=== PATIENT | male | born 1965 | race Caucasian/White ===

== ENCOUNTER 2017-03-11 05:54 | Outpatient (CLI) | payer OTHER ==
--- NOTE | ~2017-03-11 | HEMODYNAMI ---
PATIENT:NICOL OROURKE MEDICAL RECORD: [id number] : 61 LOCATION:D.CAT ADMISSION DATE: 03/11/17 Generatedon:03/11/20178:51 Patient name: NICOL OROURKE Patient #: [id number] SSN: : 1965 Date of study: 03/11/2017 Page: Of Hemodynamic Procedure Report Patient Data Patient Demographics Procedure consent was obtained First Name: NICOL Gender: Male Last Name: HAVEN : 1965 [facility] Initial: YASMINE Age: 52 year(s) Patient #: [id number] Race: Additional ID: [id number] Contact details Address: [address] [place] [address] State: [place] City: [place] Zip code: [address] Past Medical History Allergies Allergen Reaction Date Comments Reported Other allergy 09/27/2014 SHRIMP (hives, swelling); NO allergy to Iodine. Other allergy 05/05/2016 Shellfish Shellfish 03/11/2017 Admission Admission Data Admission Date: 03/11/2017 Admission Time: 5:54 Procedure Procedure Types Cath Procedure Diagnostic Procedure [facility] w/Coronaries PCI Procedure Coronary Stent Initial PTCA Initial Miscellaneous Procedures Moderate Sedation up to 30 minutes Procedure Description Procedure Date Procedure Date: 03/11/2017 Procedure Start Time: 8:32 Procedure End Time: 8:50 Procedure Staff Name Function Pratik Aparicio MD Performing Physician Tarsha Allison RT Scrub Fabian Ortiz RT Scrub Ruslan Davis RN Nurse Uyen Murray RT Monitor Harish Leonard RN Engraver Steel Plate Procedure Data Cath Procedure Fluoroscopy Diagnostic fluoroscopy Total fluoroscopy Time: 5.6 time: 5.6 min min Diagnostic fluoroscopy Total fluoroscopy dose: 764 dose: 764 mGy mGy Contrast Material Contrast Material Type Amount (ml) Isovue 300 89 Entry Location Entry Primary Successful Side Size Upsize Upsize Entry Closure Succes sful Closure Location (Fr) 1 (Fr) 2 (Fr) Remarks Device Remarks Femoral Right 5 Fr 6 Fr Exoseal artery Short Estimated blood loss: 10 ml Diagnostic catheters Device Type Used For End Catheter Placement Cordis 5Fr Pigtail LV Angiography Catheter (MP) Cordis 5Fr JL 4.0 Left Coronary Catheter (MP) Angiography Cordis 5Fr 3DRC Catheter Right Coronary (MP) Angiography Procedure Complications No complications Procedure Medications Medication Administration Route Dosage 0.9% NaCl I.V. 100 ml/hr Oxygen NC 2 l/min Lidocaine 2% added to field 20 Heparin Flush Bag added to field 2 bags (1000units/500ml NS) Versed I.V. 1 mg Fentanyl I.V. 50 mcg Fentanyl I.V. 50 mcg Versed I.V. 2 mg Heparin Bolus I.V. 4000 units Versed I.V. 1 mg Hemodynamics Rest Heart Rate: 68 (bpm) Snapshots Pre Cath Intra NCS Post Cath Vital Signs Time Heart Resp SPO2 etCO2 MH5rsya NIBP (mmHg) Rhythm Pain Sedation Rate (ipm) (%) (mmHg) (mmHg) Status Level (bpm) 8:10:40 66 20 98 0 0 134/69(99) NSR 0 (11) 10(A) , No pain 8:15:28 68 22 97 0 0 122/67(92) NSR 0 (11) 10(A) , No pain 8:20:13 68 15 98 0 0 120/76(90) NSR 0 (11) 10(A) , No pain 8:24:58 72 16 96 0 0 120/74(92) NSR 0 (11) 10(A) , No pain 8:29:42 87 19 96 0 0 121/84(104) NSR 0 (11) 10(A) , No pain 8:34:27 72 17 97 0 0 120/74(95) NSR 0 (11) 9(A) , No pain 8:39:14 81 15 97 0 0 122/71(99) NSR 0 (11) 9(A) , No pain 8:44:01 83 15 94 0 0 122/71(95) NSR 0 (11) 10(A) , No pain 8:48:48 78 17 96 0 0 119/70(102) NSR 0 (11) 10(A) , No pain Medications Time Medication Route Dose Verified Delivered Reason Notes Effectiveness by by 8:07:53 0.9% NaCl I.V. 100 Rsulan Ruslan Per physician ml/hr Susan Davis RN RN 8:08:12 Oxygen NC 2 Ruslan Ruslan Per physician l/min Susan Davis RN RN 8:08:25 Lidocaine 2% added 20ml Ruslan Ruslan for local to vial Susan Davis anesthetic field RN RN 8:08:46 Heparin Flush added 2 Ruslan Ruslan used for Bag to bags Susan Davis procedure (1000units/500ml field RN RN NS) 8:28:42 Versed I.V. 1 mg Ruslan Ruslan for sedation Susan Davis RN RN 8:29:07 Fentanyl I.V. 50 Ruslan Ruslan for sedation mcg Susan Davis RN RN 8:33:21 Fentanyl I.V. 50 Ruslan Ruslan for sedation mcg Susan Davis RN RN 8:33:36 Versed I.V. 2 mg Ruslan Ruslan for sedation Susan Davis RN RN 8:39:17 Heparin Bolus I.V. 4000 Ruslan Ruslan for units Susan Davis anticoagulation RN RN 8:47:37 Versed I.V. 1 mg Ruslan Ruslan for sedation Susan Davis RN svp research & ebusiness operations Log Time Note 8:00:30 Harish Leonard RN sent for patient. Start room use. 8:00:31 Time tracking: Regular hours 8:00:35 Plan of Care:Hemodynamics will remain stable., Cardiac rhythm will remain stable., Comfort level will be maintained., Respiratory function will remain adequate., Patient/ family verbilizes understanding of procedure., Procedure tolerated without complication., Recovers from procedure without complications.. 8:06:06 Patient received from Pre/Post Procedure Room to CCL 1 Alert and oriented. Tansferred to table in Supine position. 8:06:07 Warm blankets applied, and adi hugger turned on for patient comfort. 8:06:08 Correct patient and procedure confirmed by team. 8:06:09 Signed procedure consent form obtained from patient. 8:06:10 ECG and BP/O2 sat monitors applied to patient. 8:06:11 Full Disclosure recording started 8:07:53 0.9% NaCl 100 ml/hr I.V. was administered by Ruslan Davis RN; Per physician; 8:08:12 Oxygen 2 l/min NC was administered by Ruslan Davis RN; Per physician; 8:08:25 Lidocaine 2% 20ml vial added to field was administered by Ruslan Davis RN; for local anesthetic; 8:08:46 Heparin Flush Bag (1000units/500ml NS) 2 bags added to field was administered by Ruslan Davis RN; used for procedure; 8:09:40 Vital chart was started 8:12:29 Baseline sample Acquired. 8:12:32 Rhythm: sinus rhythm 8:12:43 H&P Date Dictated: 03/10/2017 Within 30 days and on chart., H&P Addendum completed by physician on day of procedure. (MUST COMPLETE FOR ALL OUTPATIENTS). 8:12:44 Pre-procedure instructions explained to patient. 8:12:45 Pre-op teaching completed and patient verbalized understanding. 8:12:47 Family in patients room. 8:12:48 Patient NPO since Midnight. 8:12:58 Patient allergic to Shellfish 8:13:01 Is the patient allergic to Iodine/contrast media? No. 8:13:03 Was the patient premedicated? No 8:13:05 Is patient on blood thinner?Yes 8:13:07 ACC The patient was administered the following blood thiners within the last 24 hours: ACCAspirin, ACCPlavix 8:13:08 Patient diabetic? No. 8:13:16 Previous problem with sedation/anesthesia? No ? 8:13:17 Snore? Yes 8:13:18 Sleep apnea? Yes 8:13:19 Deviated septum? No 8:13:20 Opens mouth fully? Yes 8:13:21 Sticks out tongue? Yes 8:13:26 Airway obstruction? No ? 8:13:59 Dentures? No ? 8:14:02 Pre procedure: right dorsailis pedis pulse 2+ Normal; easily identifiable; not easily obliterated 8:14:04 Patient pain scale 0/10 ?. 8:14:11 IV patent on arrival in left hand with 0.9% NaCl at [facility]. 8:14:19 Lab results completed and on chart. 8:14:21 Right groin area was prepped with chlora-prep and draped in sterile fashion 8:14:22 Alarms reviewed by R. N. 8:14:23 Sharps counted by scrub and verified by R.N. 8:14:27 Use device set Femoral Dx 8:14:28 Acist Syringe opened to sterile field. 8:14:28 Bag Decanter opened to sterile field. 8:14:29 Medline Cath Pack opened to sterile field. 8:14:29 Terumo 5Fr Winfield Sheath opened to sterile field. 8:14:29 St Juwan 260cm J .035 wire opened to sterile field. 8:14:30 Acist Hand Control opened to sterile field. 8:14:31 Acist Manifold opened to sterile field. 8:14:31 Diagnostic Infinity 5Fr Multipack catheter opened to sterile field. 8:14:32 Tegaderm 4 x 4 opened to sterile field. 8:17:41 Physician paged 8:28:09 Final Timeout: patient, procedure, and site verified with staff and physician. All members of the team are in agreement. 8:28:11 Right groin site verified by team. 8:28:14 Physical assessment completed. ASA score P 2 - A patient with mild systemic disease as per Pratik Aparicio MD. 8:28:17 Sedation plan: IV Moderate Sedation Versed, Fentanyl 8:28:42 Versed 1 mg I.V. was administered by Ruslan Davis RN; for sedation; 8:29:07 Fentanyl 50 mcg I.V. was administered by Ruslan Davis RN; for sedation; 8:29:39 Zero performed for pressure channel P1 8:30:21 Zero performed for pressure channel P1 8:30:25 Procedure started. 8:32:06 Local anesthetic to right femoral artery with Lidocaine 2% by Pratik Aparicio MD.INITIAL ACCESS ONLY 8:32:51 A 5 Fr sheath was inserted into the Right Femoral artery 8:32:59 A Cordis 5Fr Pigtail Catheter (MP) was advanced over the wire and used for LV Angiography. 8:33:21 Fentanyl 50 mcg I.V. was administered by Ruslan Davis RN; for sedation; 8:33:30 LV gram done using WALTON 8:33:36 Versed 2 mg I.V. was administered by Ruslan Davis RN; for sedation; 8:33:37 Injector settings: Ml/sec: 10, Volume: 20, 8:33:39 Catheter removed. 8:33:46 A Cordis 5Fr JL 4.0 Catheter (MP) was advanced over the wire and used for Left Coronary Angiography. 8:34:52 Terumo 6Fr Winfield Sheath opened to sterile field. 8:34:52 Cline Whisper J 300cm 0.014 guide wire opened to sterile field. 8:34:53 InEnTec BasixCompak Inflation Kit opened to sterile field. 8:34:57 Catheter removed. 8:35:02 A Cordis 5Fr 3DRC Catheter (MP) was advanced over the wire and used for Right Coronary Angiography. 8:35:35 Catheter removed. 8:35:43 Cordis 6FR XBLAD 3.5 guide catheter opened to sterile field. 8:35:51 Sheath upsized to a 6 Fr Short. 8:38:45 6 Fr XBLAD 3.5 guide catheter was inserted over the wire 8:39:17 Heparin Bolus 4000 units I.V. was administered by Ruslan Davis RN; for anticoagulation; 8:39:31 Whisper wire advanced. 8:40:57 Inflation Number: 1 A Promus Premier OTW 3.5 x 20 stent was prepped and advanced across the Mid LAD. The stent was deployed at 17 CATRINA for 0:05 (min:sec). 8:42:25 Wire redirected to Diag. 8:43:00 Stent catheter was removed intact over wire. 8:45:29 Inflation number: 1 A Euphora 1.5 x 12 balloon was prepped and advanced across the 1st Diag, then inflated to 17 CATRINA for 0:09 (min:sec). 8:45:40 Inflation number: 2 The Euphora 1.5 x 12 balloon was reinflated across the 1st Diag, to 21 CATRINA for 0:06 (min:sec). 8:46:16 Balloon removed over the wire. 8:46:16 Wire removed. 8:46:17 Guide catheter removed. 8:46:24 Sheath removed intact; hemostasis achieved with Exoseal to the Right Femoral artery. 8:46:31 Cordis 6Fr Exoseal opened to sterile field. 8:46:33 Procedure ended.(Physican Out) 8:47:37 Versed 1 mg I.V. was administered by Ruslan Davis RN; for sedation; 8:47:47 Fluoroscopy time 05.60 minutes. 8:47:51 Fluoroscopy dose: 764 mGy 8:47:51 Flurop Dose total: 764 8:47:55 Contrast amount:Isovue 300 89ml. 8:47:57 Sharps counted by scrub and verified by R.N. 8:47:59 Insertion/operative site no bleeding no hematoma. 8:48:02 Post-op/insertion site Right Femoral artery dressed using a 4 x 4 and Tegaderm. 8:48:05 Post right femoral artery:stable, clean and dry 8:48:07 Post Procedure Pulses reassessed and unchanged 8:48:10 Post-procedure physical assessment completed. ASA score P 2 - A patient with mild systemic disease as per Pratik Aparicio MD. 8:48:12 Post procedure rhythm: unchanged. 8:48:18 Estimated blood loss: 10 ml 8:48:20 Post procedure instruction explained to patient.Patient verbalizes understanding. 8:48:20 Patient needs reinforcement of post procedure teaching. 8:48:33 Procedure type changed to Cath procedure, Diagnostic procedure, LHC, LHC w/Coronaries, PCI procedure, Coronary Stent Initial, PTCA Initial, Miscellaneous Procedures, Moderate Sedation up to 30 minutes 8:49:55 Procedure and supply charges have been captured, reviewed, submitted and are correct. 8:50:00 Procedure Complication : No complications 8:50:02 See physician's report for complete and final results. 8:50:30 Vital chart was stopped 8:50:31 Report given to Pre/Post Procedure Room. 8:50:35 Patient transfered to Pre/Post Procedure Room with Stretcher. 8:50:42 Procedure ended. 8:50:42 Full Disclosure recording stopped 8:50:45 End room use (Document Last) Intervention Summary Intervention Notes Time ActionType Lesion and Equipment Action# Pressure Duration Attributes Used 8:40:57 Place stent Mid LAD Promus 1 17 00:05 Premier OTW 3.5 x 20 stent 8:45:29 Inflate 1st Diag Euphora 1 17 00:09 balloon 1.5 x 12 balloon 8:45:40 Reinflate 1st Diag Euphora 2 21 00:06 balloon 1.5 x 12 balloon Device Usage Item Name Manufacture Quantity Catalog Number Hospital Part Current Mini [facility] Lot# / Charge Number Stock Stock Serial# Code Acist Acist 1 [id number] 028312 196282 20 MyDentist Inc Bag Microtek 1 [id number] [id number] 84640 237468 5 ReferMe Inc. Medline Cardinal 1 [id number] 462968 58713 248842 5 Cath Pack Health Terumo 5Fr Terumo 1 [id number] 024764 798977 351225 [address] St Juwan 1 247641 173732 713711 992209 30 260cm J .035 wire Acist Hand Acist 1 62169 155884 352329 871861 5 Baitianshi Medical [employer] Inc Acist Acist 1 09063 018603 273314 686984 5 Cooltech Applications Medical Systems Inc Diagnostic Cardinal 1 [id number] 088296 33195 907206 30 Infinity Health 5Fr Multipack catheter Tegaderm 4 3M 1 1626W 327542 010342 732254 5 x 4 Cordis 5Fr Cardinal 1 [id number] 5 Pigtail Health Catheter (MP) Cordis 5Fr Cardinal 1 [id number] 5 JL 4.0 Health Catheter (MP) Terumo 6Fr Terumo 1 [id number] 562695 113489 713374 40 Winfield Sheath [facility] 1 [id number] 571029 963610 786803 5 Whisper J Vascular 300cm 0.014 guide wire Merit Merit 1 [id number] 314682 283511 789447 15 InvitedHome Medical Inflation Kit Cordis 5Fr Cardinal 1 384858 5 3DRC Health Catheter (MP) Cordis 6FR Cardinal 1 [id number] 818809 769616 878019 10 XBLAD 3.5 Health guide catheter Promus Gambier 1 [id number] 488514 369270 5 [id number] Premier W Scientific 3.5 x 20 stent Euphora 1.5 Medtronic 1 [id number] 400737 596079 851850 5 [id number] x 12 balloon Cordis 6Fr Cardinal 1 EX600 241563 675772 754420 10 DoYouBuzz Health Signature Audit [place] Stage Time Signature Unsigned Intra-Procedure 03/11/2017 Uyen 8:50:57 AM Counts RT(R) Signatures Monitor : Uyen Signature : Counts RT Date : Time : [facility] [address] [facility] [address]
[~2017-03-11 05:54] MED LIST: BAYER CHEWABLE81 MG PO; CO Q-10100 MG PO; KRILL OIL 1,001 EAC1 PO; LISINOPRIL10 MG PO; PLAVIX75 MG PO; PREDNISONE PO; TOPROL XL25 MG PO; ZYLOPRIM300 MG PO
[2017-03-11 07:18] LABS: BASOPHILS 0.2 % (0-2); HEMATOCRIT 42.3 % (42.0-54.0); HEMOGLOBIN 14.9 g/dL (13.5-17.5); IMMATURE GRANULOCYTES 1.4 % (0-5); LYMPHOCYTES 29.8 % (15-50); MCH 32.3 pg (26.0-34.0); MCHC 35.2 g/dL (31.0-37.0); MCV 91.8 fL (80.0-100.0); MEAN PLATELET VOLUME 9.6 fL (7.4-10.4); MONOCYTES 6.9 % (2-11); NEUTROPHILS 60.7 % (40-80); PLATELET COUNT 158 10x3/uL (130-400); RBC 4.61 10x6/uL (4.20-6.10); WBC 10.6 10x3/uL (4.8-10.8)
[2017-03-11 07:21] VITALS: BP 130/76; BMI 35.9
[2017-03-11 07:49] LABS: ANION GAP 14.9 mmol/L (8-16); CALCIUM 9.4 mg/dL (8.5-10.1); CARBON DIOXIDE 26.8 mmol/L (21.0-32.0); CREATININE - SERUM 1.3 mg/dL (0.6-1.3); POTASSIUM - SERUM 3.7 mmol/L (3.5-5.1)
--- NOTE | 2017-03-11 09:12 | NUR ---
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 REPORTS OF ONE STENT TO THE LAD AND BALLON TO THE DIAG. HR 80 CHEST PAIN DENIED. O2 AT 2 LITERS NASAL WITH SAT 98% BP 132/78. INSTRUCTED PATIENT TO KEEP HEAD FLAT ON PILLOW WITH RLE STRAIGHT
--- NOTE | 2017-03-11 09:15 | NUR ---
6 FR EXOSEAL R/GROIN CDI NO BLEEDING NO HEMATOMA NOTED. VSS WITH CHEST PAIN DENIED
--- NOTE | 2017-03-11 09:32 | NUR ---
6 FR EXOSEAL R/GROIN CDI NO BLEEDING NO HEMATOMA NOTED. VSS WITH CHEST PAIN DENIED. DR LEES AT BEDSIDE
--- NOTE | 2017-03-11 09:42 | NUR ---
RESTING QUIETLY WITH NO DISTRESS NOTED VSS. 6 FR EXOSEAL R/GROIN CDI NO BLEEDING NO HEMATOMA NOTED
--- NOTE | 2017-03-11 10:11 | NUR ---
TOLERATING FLUIDS WITH NAUSEA DENIED. VSS WITH NO DISTRESS NOTED. 6 FR EXOSEAL R/GROIN CDI NO BLEEDING NO HEMATOMA NOTED
--- NOTE | 2017-03-11 10:32 | NUR ---
NO DISTRESS NO COMPLAINTS VSS WITH 6 FR EXOSEAL R/GROIN CDI NO BLEEDING NO HEMATOMA NOTED.
--- NOTE | 2017-03-11 11:00 | NUR ---
6 FR EXOSEAL R/GROIN CDI NO BLEEDING NO HEMATOMA NOTED. VSS WITH CHEST PAIN DENIED. PATIENT VERBALIZED NEED TO URINATE URINAL PROVIDED WITH PATIENT UPSET. STATED I HAVE TO STAND UP TO URINATE I INSTRUCTED PATIENT OF ORDERS FOR BED REST UNTIL 1300. PATIENT ANGRY STATED THEN I WANT TO GO HOME NOW. NOTIFIED JANINE WITH ASSIST TO ROOM
--- NOTE | 2017-03-11 11:28 | NUR ---
6 FR EXOSEAL R/GROIN CDI NO BLEEDING NO HEMATOMA NOTED. PATIENT VOIDS 700 CC URINE TO COLLECTION VSS
--- NOTE | 2017-03-11 11:56 | NUR ---
REPOSITIONED TO SITTING WITH HOB UP 30 DEGREES AT PATIENT DEMAND.REFUSING TO OBEY ORDERS WANTS BP OFF AND PULSE OX OFF. EDUCATED PATIENT OF NEED TO MONITOR VITAL SIGNS AND RISK FOR BLEEDING TO GROIN. PATIENT STILL REFUSED HOB RAISED 30 DEGREES R/GROIN CDI NO BLEEDING NO HEMATOMA NOTED.
--- NOTE | 2017-03-11 12:24 | NUR ---
R/GROIN CDI NO BLEEDING NO HEMATOMA NOTED. PIV REMOVED WITH DRESSING APPLIED PATIENT UP TO GET DRESSED FOR DISCHARGE HOME CHEST PAIN DENIED
--- NOTE | 2017-03-11 12:40 | NUR ---
VERBAL AND WRITTEN DISCHARGE GONE OVER WITH PATIENT AND FRIENDS. R/GROIN REMAINS CDI NO BLEEDING NO HEMATOMA NOTED. CHEST PAIN IS DENIED. LEFT VIA WC TO PARKING FOR TRANSPORT HOME NO DISRESS
--- NOTE | 2017-03-11 16:47 | OP ---
PATIENT NAME: NICOL OROURKE MEDICAL RECORD: [id number] :61 LOCATION:D.CAT ADMISSION DATE: SURGEON: YEHUDA LEES MD DATE OF OPERATION: 03/11/2017 PROCEDURES: 1. PTCA stent LAD. 2. PTCA LAD diagonal. 3. Left heart catheterization. 4. Selective coronary angiography. 5. Left ventriculogram. INDICATION: Angina and coronary artery disease. PROCEDURE IN DETAIL: After informed consent was obtained and after a detailed explanation of the risks, benefits as well as alternative therapies, the patient elected to proceed with angiogram and angioplasty. The right femoral area was prepped and draped in normal sterile fashion. The right femoral artery was cannulated via modified Seldinger technique with placement of a 6-Albanian sheath. All catheters exchanged through this sheath. FINDINGS: Left ventriculogram was performed in standard 30-degree WALTON view, reveals good cardiac wall motion throughout all segments. Overall ejection fraction estimated 60%. SELECTIVE CORONARY ANGIOGRAPHY: 1. Left main showed no significant angiographic disease. 2. Left anterior descending has previously placed stent in the mid vessel with up to 70% to 80% in-stent restenosis. This is a Resolute stent placed in 2015. 3. Left circumflex shows moderate irregularities, but no flow-limiting stenosis. Previously placed stent is widely patent. 4. Right coronary has moderate irregularities, but no flow-limiting stenosis. PTCA STENT OF THE LAD: The in-stent restenosis was addressed with a 3.5 x 20 mm Promus stent taken to 17 atmospheres. The diagonal have a plaque shift opposing impingement and the diagonal, this was ballooned with a 1.5 balloon. Result was 0% residual throughout. OVERALL IMPRESSION: Successful percutaneous transluminal coronary angioplasty stent of the left anterior descending going from 70% to 80% in-stent restenosis to 0% residual stenosis. 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
== END 2017-03-11 12:42 | disposition home or self-care (01) ==
LOC: D.CATH 05:54
PROVIDERS: Internal Medicine Interventional Cardiology
DX: I25.119 Atherosclerotic heart disease of native coronary artery with unspecified angina pectoris (principal); I10 Essential (primary) hypertension; Z01.812 Encounter for preprocedural laboratory examination

== ENCOUNTER 2017-08-17 07:24 | Outpatient (CLI) | payer OTHER ==
[~2017-08-17] VITALS: Ht 177.8 cm; Wt 107.7 kg
--- NOTE | ~2017-08-17 | OP ---
PATIENT NAME: NICOL OROURKE MEDICAL RECORD: [id number] :61 LOCATION:D.CAT ADMISSION DATE: SURGEON: YEHUDA LEES MD DATE OF OPERATION: 08/17/2017 PROCEDURES: 1. PTCA stent RCA. 2. Intravascular ultrasound. 3. Left heart catheterization. 4. Selective coronary angiography. 5. Left ventriculogram. INDICATION: Angina and coronary artery disease. PROCEDURE IN DETAIL: After informed consent was obtained and after detailed explanation of risks, benefits as well as alternative therapies, the patient elected to proceed with angiogram and angioplasty. The right femoral area is prepped and draped in normal sterile fashion. The right femoral artery was cannulated via modified Seldinger technique with placement of 6-Setswana sheath. All catheters exchanged through this sheath. FINDINGS: The left ventriculogram was performed in standard 30-degree WALTON view and reveals good cardiac wall motion throughout all segments. Overall ejection fraction is estimated at 60%. SELECTIVE CORONARY ANGIOGRAPHY: 1. Left main showed no significant angiographic disease. 2. Left anterior descending has previously placed stent that is widely patent with no significant restenosis. No disease elsewhere throughout the LAD or its branches. 3. The left circumflex has moderate irregularities, but no flow-limiting stenosis. 4. Right coronary artery has an area of 70% stenosis confirmed by intravascular ultrasound in the mid vessel. PTCA STENT OF THE RIGHT CORONARY: The stent used was 3.5 x 15 mm Daniele. Result was 0% residual stenosis. OVERALL IMPRESSION: Successful PTCA stent of the RCA going from 70% initial stenosis confirmed by intravascular ultrasound to 0% residual stenosis. 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
--- NOTE | ~2017-08-17 | HEMODYNAMI ---
PATIENT:NICOL OROURKE MEDICAL RECORD: [id number] : 61 LOCATION:[facility] ADMISSION DATE: 08/17/17 Generatedon:08/17/201710:05 Patient name: NICOL OROURKE Patient #: [id number] SSN: : 1965 Date of study: 08/17/2017 Page: Of Hemodynamic Procedure Report Patient Data Patient Demographics Procedure consent was obtained First Name: NICOL Gender: Male Last Name: HAVEN : 1965 [facility] Initial: YASMINE Age: 52 year(s) Patient #: [id number] Race: Additional ID: [id number] Contact details [address]: [address] [place] [address] State: [place] City: [place] Zip code: [address] Past Medical History Allergies Allergen Reaction Date Comments Reported Other allergy 09/27/2014 SHRIMP (hives, swelling); NO allergy to Iodine. Other allergy 05/05/2016 Shellfish Shellfish 03/11/2017 Admission Admission Data Admission Date: 08/17/2017 Admission Time: 7:24 Procedure Procedure Types Cath Procedure Diagnostic Procedure LHC [facility] w/Coronaries FFR/IVUS Intra-Coronary IVUS Initial Sedation Charges Moderate Sedation up to 15 minutes PCI Procedure Coronary Stent Coronary Stent Initial Procedure Description Procedure Date Procedure Date: 08/17/2017 Procedure Start Time: 9:46 Procedure End Time: 10:05 Procedure Staff Name Function Pratik Aparicio MD Performing Physician Fabian Ortiz RT Monitor Harish Leonard RN Nurse Jimi Davis RT Scrub Procedure Data Cath Procedure Fluoroscopy Diagnostic fluoroscopy Total fluoroscopy Time: 3.8 time: 3.8 min min Diagnostic fluoroscopy Total fluoroscopy dose: 391 dose: 391 mGy mGy Contrast Material Contrast Material Type Amount (ml) Isovue 300 96 Entry Location Entry Primary Successful Side Size Upsize Upsize Entry Closure Succes sful Closure Location (Fr) 1 (Fr) 2 (Fr) Remarks Device Remarks Femoral Right 5 Fr 6 Fr Exoseal artery Short Estimated blood loss: 10 ml Diagnostic catheters Device Type Used For End Catheter Placement MULTIPACK Pigtail 5 Fr Procedure catheter MULTIPACK JL 4.0 5Fr Procedure catheter MULTIPACK 3DRC 5Fr Procedure catheter Procedure Complications No complications Procedure Medications Medication Administration Route Dosage Oxygen NC 2 l/min Heparin Flush Bag added to field 2 bags (1000units/500ml NS) 0.9% NaCl I.V. 100 ml/hr Fentanyl I.V. 50 mcg Versed I.V. 1 mg Fentanyl I.V. 50 mcg Versed I.V. 1 mg Fentanyl I.V. 50 mcg Fentanyl I.V. 50 mcg Heparin Bolus I.V. 4000 units Hemodynamics Rest Heart Rate: 85 (bpm) Pressure Samples Time Site Value (mmHg) Purpose Heart Use Rate(bpm) 9:47 LV 113/12,17 Snapshot 76 9:48 AO 98/67(81) Snapshot 82 9:50 AO 104/75(88) Snapshot 89 Snapshots Pre Cath Intra NCS Post Cath Vital Signs Time Heart Resp SPO2 etCO2 NIBP (mmHg) Rhythm Pain Sedation Rate (ipm) (%) (mmHg) Status Level (bpm) 9:29:22 81 16 98 0 130/74(95) NSR 0 (11) 10(A) , No pain 9:33:44 84 17 96 0 126/78(102) NSR 0 (11) 10(A) , No pain 9:38:02 84 18 94 0 125/83(101) NSR 0 (11) 10(A) , No pain 9:42:18 75 16 96 19.6 121/75(89) NSR 0 (11) 10(A) , No pain 9:46:36 84 16 97 40 133/74(98) NSR 0 (11) 10(A) , No pain 9:50:56 87 15 96 39.2 129/81(93) NSR 0 (11) 10(A) , No pain 9:55:14 89 15 98 27.9 124/75(94) NSR 0 (11) 10(A) , No pain 9:59:32 86 24 91 23.4 125/79(89) NSR 0 (11) 10(A) , No pain 10:03:46 86 16 96 36.9 128/75(96) NSR 0 (11) 10(A) , No pain Medications Time Medication Route Dose Verified Delivered Reason Notes Effectiveness by by 9:40:18 Oxygen NC 2 Pratik Moreira Per physician l/min Markus Leonard RN 9:40:28 Heparin Flush added 2 Pratik Moreira used for Bag to bags Markus Leonard RN procedure (1000units/500ml field NS) 9:40:37 0.9% NaCl I.V. 100 Pratik Moreira Per physician ml/hr Markus Leonard RN 9:40:44 Fentanyl I.V. 50 Pratik Montalvoy for sedation mcg Markus Leonard RN 9:40:51 Versed I.V. 1 mg Pratik Montalvoy for sedation Markus Leonard RN 9:46:37 Fentanyl I.V. 50 Pratik Harish for sedation mcg Markus Leonard RN 9:46:42 Versed I.V. 1 mg Pratik Harish for sedation Markus Leonard RN 9:50:16 Fentanyl I.V. 50 Pratik Harish for sedation mcg Markus Leonard RN 9:55:43 Heparin Bolus I.V. 4000 Pratik Moreira for units Markus Leonard RN anticoagulation 9:59:17 Fentanyl I.V. 50 Pratik Harish for sedation mcg Markus Leonard RN Procedure Log Time Note 9:00:49 Harish Leonard RN sent for patient. Start room use. 9:14:50 Time tracking: Regular hours 9:14:53 Plan of Care:Hemodynamics will remain stable., Cardiac rhythm will remain stable., Comfort level will be maintained., Respiratory function will remain adequate., Patient/ family verbilizes understanding of procedure., Procedure tolerated without complication., Recovers from procedure without complications.. 9:22:23 Patient received from Pre/Post Procedure Room to CCL 3 Alert and oriented. Tansferred to table in Supine position. 9:22:24 Warm blankets applied, and adi hugger turned on for patient comfort. 9:22:24 Correct patient and procedure confirmed by team. 9:22:25 Signed procedure consent form obtained from patient. 9:22:26 ECG and BP/O2 sat monitors applied to patient. 9:22:37 H&P Date Dictated: 08/11/2017 Within 30 days and on chart., H&P Addendum completed by physician on day of procedure. (MUST COMPLETE FOR ALL OUTPATIENTS). 9:22:39 Pre-procedure instructions explained to patient. 9:22:39 Pre-op teaching completed and patient verbalized understanding. 9::40 Family in waiting room. 9::41 Patient NPO since Midnight. 9:28:10 Vital chart was started 9:28:11 Baseline sample Acquired. 9:39:02 Rhythm: sinus rhythm 9:39:03 Full Disclosure recording started 9:39:07 Is the patient allergic to Iodine/contrast media? Yes. 9:39:09 Was the patient premedicated? Yes 9:39:10 Is patient on blood thinner?Yes 9:39:12 ACC The patient was administered the following blood thiners within the last 24 hours: ACCPlavix 9:39:13 Patient diabetic? No. 9:39:15 Previous problem with sedation/anesthesia? No ? 9:39:16 Snore? Yes 9:39:17 Sleep apnea? Yes 9:39:18 Deviated septum? No 9:39:18 Opens mouth fully? Yes 9:39:19 Sticks out tongue? Yes 9:39:21 Airway obstruction? No ? 9:39:23 Dentures? No ? 9:39:25 Pre procedure: right dorsailis pedis pulse 1+ Palpable, but thready & weak; easily obliterated 9:39:27 Patient pain scale 0/10 ?. 9:39:31 IV patent on arrival in left forearm with 0.9% NaCl at KVO. 9:39:33 Lab results completed and on chart. 9:39:36 Right groin area was prepped with chlora-prep and draped in sterile fashion 9:39:37 Alarms reviewed by R. N. 9:39:37 Sharps counted by scrub and verified by R.N. 9:39:38 --------ALL STOP TIME OUT------ 9:39:38 Final Timeout: patient, procedure, and site verified with staff and physician. All members of the team are in agreement. 9:39:42 Right groin site verified by team. 9:39:44 Physical assessment completed. ASA score P 2 - A patient with mild systemic disease as per Pratik Aparicio MD. 9:39:47 Sedation plan: IV Moderate Sedation Medication:Versed, Fentanyl 9:39:52 Zero performed for pressure channel P1 9:40:18 Oxygen 2 l/min NC was administered by Harish Leonard RN; Per physician; 9:40:28 Heparin Flush Bag (1000units/500ml NS) 2 bags added to field was administered by Harish Leonard RN; used for procedure; 9:40:37 0.9% NaCl 100 ml/hr I.V. was administered by Harish Leonard RN; Per physician; 9:40:44 Fentanyl 50 mcg I.V. was administered by Harish Leonard RN; for sedation; 9:40:51 Versed 1 mg I.V. was administered by Harish Leonard RN; for sedation; 9:46:24 Procedure started. 9:46:30 Local anesthetic to right femoral artery with Lidocaine 2% by Pratik Aparicio MD.INITIAL ACCESS ONLY 9:46:37 Fentanyl 50 mcg I.V. was administered by Harish Leonard RN; for sedation; 9:46:42 Versed 1 mg I.V. was administered by Harish Leonard RN; for sedation; 9:46:43 Use device set Femoral Dx 9:46:45 Tegaderm 4 x 4 (1626W) opened to sterile field. 9:46:46 ACIST Manifold (06707) opened to sterile field. 9:46:46 ACIST Hand Control (43432) opened to sterile field. 9:46:48 ACIST Syringe (54086) opened to sterile field. 9:46:48 Bag Decanter (2002) opened to sterile field. 9:46:49 Medline Cath Pack ([id number]) opened to sterile field. 9:46:49 SHEATH 5FR [place] (XMP613) opened to sterile field. 9:46:50 DIAGNOSTIC WIRE .035 260cm J wire (206192) opened to sterile field. 9:46:51 DIAGNOSTIC Multipack 5Fr catheter set (XZ6451) opened to sterile field. 9:46:52 PERCUTANEOUS ENTRY 19GA needle opened to sterile field. 9:47:00 A 5 Fr sheath was inserted into the Right Femoral artery 9:47:16 A MULTIPACK Pigtail 5 Fr catheter was advanced over the wire and used for Procedure. 9:47:42 LV angiography performed. 9:47:43 LV gram done using WALTON 9:47:49 EF : 60 % 9:47:51 LV hemodynamics recorded. 9:47:54 Injector settings: Ml/sec: 7, Volume: 15, 9:47:56 Catheter removed. 9:48:03 A MULTIPACK JL 4.0 5Fr catheter was advanced over the wire and used for Procedure. 9:48:40 LCA angiography performed. 9:49:27 Catheter removed. 9:49:36 A MULTIPACK 3DRC 5Fr catheter was advanced over the wire and used for Procedure. 9:50:16 Fentanyl 50 mcg I.V. was administered by Harish Leonard RN; for sedation; 9:50:26 RCA angiography performed. 9:51:12 Catheter removed. 9:51:44 [place] IVUS Catheter (39195L) opened to sterile field. 9:51:44 INFLATOR Merit BasixCompak (MR1267) opened to sterile field. 9:51:45 GUIDE 6FR AR 1.0 catheter ([id number]) opened to sterile field. 9:51:45 SHEATH 6FR [place] (AJB462) opened to sterile field. 9:52:01 CHOICE PT Extra Support 182cm wire ([id number]) opened to sterile field. 9:52:16 Sheath upsized to a 6 Fr Short. 9:53:40 6 Fr AR 1 guide catheter was inserted over the wire 9:53:50 Choice PT XS wire advanced. 9:53:59 Wire advanced across lesion. 9:54:10 IVUS catheter advanced over wire. 9:55:43 Heparin Bolus 4000 units I.V. was administered by Harish Leonard RN; for anticoagulation; 9:56:27 IVUS pass to RCA lesion performed. 9:56:29 IVUS catheter removed over wire. 9:59:17 Fentanyl 50 mcg I.V. was administered by Harish Leonard RN; for sedation; 10:00:07 Inflation Number: 1 A PAULINE RX 3.5 x 15 stent ([id number]) was prepped and advanced across the Mid RCA. The stent was deployed at 17 CATRINA for 0:10 (min:sec). 10:00:55 Stent catheter was removed intact over wire. 10:00:56 Wire removed. 10:00:57 Guide catheter removed. 10:01:10 EXOSEAL 6Fr (EX600) opened to sterile field. 10:01:19 Sheath removed intact; hemostasis achieved with Exoseal to the Right Femoral artery. 10:01:21 Procedure ended.(Physican Out) 10:01:42 Fluoroscopy time 03.80 minutes. 10:01:47 Fluoroscopy dose: 391 mGy 10:01:47 Flurop Dose total: 391 10:01:56 Contrast amount:Isovue 300 96ml. 10:01:57 Sharps counted by scrub and verified by R.N. 10:01:58 Insertion/operative site no bleeding no hematoma. 10:02:01 Post-op/insertion site Right Femoral artery dressed using a 4 x 4 and Tegaderm. 10:02:23 Post Procedure Pulses reassessed and unchanged 10:02:26 Post-procedure physical assessment completed. ASA score P 2 - A patient with mild systemic disease as per Pratik Aparicio MD. 10:02:29 Post procedure rhythm: unchanged. 10:02:31 Estimated blood loss: 10 ml 10:02:32 Post procedure instruction explained to patient.Patient verbalizes understanding. 10:02:33 Patient needs reinforcement of post procedure teaching. 10:02:56 Procedure type changed to Cath procedure, Diagnostic procedure, LHC, LHC w/Coronaries, FFR/IVUS, Intra-Coronary IVUS Initial, Sedation Charges, Moderate Sedation up to 15 minutes, PCI procedure, Coronary Stent, Coronary Stent Initial 10:03:00 Procedure Complication : No complications 10:03:38 Procedure and supply charges have been captured, reviewed, submitted and are correct. 10:04:59 Vital chart was stopped 10:05:00 See physician's report for complete and final results. 10:05:03 Report given to Pre/Post Procedure Room. 10:05:05 Patient transfered to Pre/Post Procedure Room with Stretcher. 10:05:08 Procedure ended. 10:05:08 Full Disclosure recording stopped 10:05:11 End room use (Document Last) Intervention Summary Intervention Notes Time ActionType Lesion and Equipment Used Action# Pressure Duration Attributes 10:00:07 Place stent Mid RCA PAULINE RX 3.5 x 1 17 00:10 15 stent ([id number]) Device Usage Item Name Manufacture Quantity Catalog Number Hospital Part Current M inimal Lot# / Charge Number Stock Stock Serial# Code Tegaderm 4 x 4 3M 1 1626W 160521 170343 050229 5 (1626W) ACIST Manifold Acist 1 98499 659042 289729 023802 5 (46849) Medical Systems Inc ACIST Hand Acist 1 23875 195109 789853 349898 5 Control Medical (47853) Systems Inc ACIST Syringe Acist 1 39096 541335 965406 675190 2 0 (79618) Medical Systems Inc Bag Decanter Microtek 1 2001S 646382 49087 393399 5 (2001S) Medical Inc. Medline Cath Cardinal 1 [id number] 963808 37861 582165 5 Pack Health ([id number]) SHEATH 5FR Terumo 1 BPM227 643373 896747 500677 4 0 [place] (PSY705) DIAGNOSTIC [facility] [place] 1 675414 386897 471157 150977 3 0 WIRE .035 260cm J wire (084824) DIAGNOSTIC Cardinal 1 CR8152 551397 80656 434392 3 0 Multipack 5Fr Health catheter set (AN4799) PERCUTANEOUS Cook Medical 1 U52712 261707 345101 5 ENTRY 19GA needle MULTIPACK Cardinal 1 017500 5 Pigtail 5 Fr Health catheter MULTIPACK JL Cardinal 1 509372 5 4.0 5Fr Health catheter MULTIPACK 3DRC Cardinal 1 571712 5 5Fr catheter Health [place] 1 05939E 012101 351226 945772 8 [place] IVUS Catheter (35571N) INFLATOR Merit Merit 1 TH9927 283894 929053 979650 1 5 [place] Center[facility] (CB0213) GUIDE 6FR AR Medtronic 1 [id number] 888226 26729 306547 1 1.0 catheter ([id number]) SHEATH 6FR Terumo 1 DAT796 568251 948034 805869 4 0 [place] (WIP653) CHOICE PT [place] 1 [id number] 579353 812374 236520 5 Extra Support Scientific 182cm wire ([id number]) PAULINE RX 3.5 x Medtronic 1 [id number] 269227 7259842 436440 5 [id number] 15 stent ([id number]) EXOSEAL 6Fr Cardinal 1 EX600 247708 976726 973147 1 0 (EX600) Health Signature Audit [place] Stage Time Signature Unsigned Intra-Procedure 08/17/2017 Fabian Ortiz 10:05:33 AM RT(R) Signatures Monitor : Fabian Ortiz RT Signature : Date : Time : [facility] [address] [place] [address]
[2017-08-17 07:56] VITALS: BP 120/73; Ht 177.8 cm; Wt 107.7 kg
[2017-08-17 08:15] LABS: BASOPHILS 0.5 % (0-2); EOSINOPHILS 3.8 % (0-7); HEMATOCRIT 42.8 % (42.0-54.0); HEMOGLOBIN 15.1 g/dL (13.5-17.5); IMMATURE GRANULOCYTES 0.5 % (0-5); LYMPHOCYTES 30.9 % (15-50); MCHC 35.3 g/dL (31.0-37.0); MCV 90.7 fL (80.0-100.0); MEAN PLATELET VOLUME 9.9 fL (7.4-10.4); MONOCYTES 6.5 % (2-11); NEUTROPHILS 57.8 % (40-80); RBC 4.72 10x6/uL (4.20-6.10); RDW 12.8 % (11.5-14.5); WBC 5.5 10x3/uL (4.8-10.8)
[2017-08-17 08:22] LABS: PLATELET COUNT 123 10x3/uL (130-400)
[2017-08-17 08:31] LABS: ANION GAP 15.4 mmol/L (8-16); CALCIUM 9.5 mg/dL (8.5-10.1); CARBON DIOXIDE 24.5 mmol/L (21.0-32.0); CREATININE - SERUM 1.2 mg/dL (0.6-1.3); POTASSIUM - SERUM 3.9 mmol/L (3.5-5.1)
== END 2017-08-17 13:55 | disposition home or self-care (01) ==
LOC: D.CATH 07:24
PROVIDERS: Internal Medicine Interventional Cardiology
DX: I25.119 Atherosclerotic heart disease of native coronary artery with unspecified angina pectoris (principal); I10 Essential (primary) hypertension; Z01.812 Encounter for preprocedural laboratory examination

== ENCOUNTER → 2017-11-04 10:24 | Outpatient (CLI) | payer OTHER ==
[~2017-11-04] VITALS: Ht 177.8 cm; Wt 107.3 kg
--- NOTE | ~2017-11-04 | HEMODYNAMI ---
PATIENT:NICOL OROURKE MEDICAL RECORD: [id number] : 61 LOCATION:DJOSE ADMISSION DATE: 11/04/17 Generatedon:11/04/201714:11 Patient name: NICOL OROURKE Patient #: [id number] SSN: : 1965 Date of study: 11/04/2017 Page: Of Hemodynamic Procedure Report Patient Data Patient Demographics Procedure consent was obtained First Name: NICOL Gender: Male Last Name: HAVEN : 1965 [facility] Initial: YASMINE Age: 52 year(s) Patient #: [id number] Race: Additional ID: [id number] Contact details [address]: [address] [place] [address] State: [place] City: [place] Zip code: [address] Past Medical History Allergies Allergen Reaction Date Comments Reported Other allergy 09/27/2014 SHRIMP (hives, swelling); NO allergy to Iodine. Other allergy 05/05/2016 Shellfish Shellfish 03/11/2017 Other allergy 11/04/2017 SHELLFISH DERIVED Admission Admission Data Admission Date: 11/04/2017 Admission Time: 10:24 Height (in.): 5.6 BSA: 0.36 (m2) Height (cm.): 14.22 BMI: 5290.96 (kg/m2) Weight (lbs.): 236 Weight (kg.): 107.05 Lab Results Lab Result Date: 11/04/2017 Lab Result Time: 0:00 Biochemistry Name Units Result Min Max BUN mg/dl 14 --(--*-)-- 7 18 Creatinine mg/dl 1.2 --(---*)-- 0.6 1.3 CBC Name Units Result Min Max Hemoglobin g/dl 14.6 --(-*--)-- 13.5 17.5 Procedure Procedure Types Cath Procedure Diagnostic Procedure [facility] w/Coronaries PCI Procedure Coronary Stent Coronary Stent Initial PTCA PTCA Additional Procedure Description Procedure Date Procedure Date: 11/04/2017 Procedure Start Time: 13:52 Procedure End Time: 14:11 Procedure Staff Name Function Pratik Aparicio MD Performing Physician Uyen Murray RT Monitor Tarsha Allison RT Scrub Ruslan Davis RN Nurse Procedure Data Cath Procedure Fluoroscopy Diagnostic fluoroscopy Total fluoroscopy Time: 4.2 time: 4.2 min min Diagnostic fluoroscopy Total fluoroscopy dose: 933 dose: 933 mGy mGy Contrast Material Contrast Material Type Amount (ml) Isovue 370 83 Entry Location Entry Primary Successful Side Size Upsize Upsize Entry Closure Succes sful Closure Location (Fr) 1 (Fr) 2 (Fr) Remarks Device Remarks Femoral Right 5 Fr 6 Fr Exoseal artery Short Estimated blood loss: 10 ml Diagnostic catheters Device Type Used For End Catheter Placement MULTIPACK Pigtail 5 Fr LV Angiography catheter MULTIPACK JL 4.0 5Fr Left Coronary catheter Angiography MULTIPACK 3DRC 5Fr Right Coronary catheter Angiography Procedure Complications No complications Procedure Medications Medication Administration Route Dosage Versed I.V. 2 mg Fentanyl I.V. 100 mcg Solumedrol I.V. 125 mg 0.9% NaCl I.V. 100 ml/hr Oxygen etCO2 Nasal cannula 2 l/min Heparin Flush Bag added to field 2 bags (1000units/500ml NS) Lidocaine 2% added to field 20 Heparin Bolus I.V. 4000 units Fentanyl I.V. 50 mcg Fentanyl I.V. 50 mcg Hemodynamics Rest BSA: 0.36 (m2) O2 Consumption: Estimated: 48.96 (ml/min) O2 Consumption indexed: Estimated:136 (ml/min/m) Pre Cath Intra NCS Post Cath Vital Signs Time Heart Resp SPO2 etCO2 NIBP (mmHg) Rhythm Pain Sedation Rate (ipm) (%) (mmHg) Status Level (bpm) 13:48:58 73 14 98 0 145/81(113) NSR 0 (11) 10(A) , No pain 13:53:55 65 19 98 23.9 139/86(107) NSR 0 (11) 10(A) , No pain 13:58:50 70 17 99 32.1 139/93(125) NSR 0 (11) 9(A) , No pain 14:03:43 81 14 95 42.6 141/82(107) NSR 0 (11) 10(A) , No pain 14:08:38 79 15 97 41.1 145/86(114) NSR 0 (11) 10(A) , No pain Medications Time Medication Route Dose Verified Delivered Reason Notes Effectiveness by by 13:50:21 0.9% NaCl I.V. 100 Ruslan Ruslan Per physician ml/hr Susan Davis RN RN 13:50:30 Oxygen etCO2 2 Ruslan Ruslan Per physician Nasal l/min Susan Davis cannula RN RN 13:50:40 Heparin Flush added 2 Ruslan Ruslan used for Bag to bags Susan Davis procedure (1000units/500ml field RN RN NS) 13:50:52 Lidocaine 2% added 20ml Ruslan Ruslan for local to vial Loradrian Davis anesthetic field RN RN 13:53:17 Versed I.V. 2 mg Ruslan Ruslan for sedation Susan Davis RN RN 13:53:25 Fentanyl I.V. 100 Ruslan Ruslan for sedation mcg Susan Davis RN RN 13:53:41 Solumedrol I.V. 125 Ruslan Ruslan Per physician mg Susan Davis RN RN 13:59:22 Heparin Bolus I.V. 4000 Ruslan Ruslan for units Susan Davis anticoagulation RN RN 13:59:32 Fentanyl I.V. 50 Ruslan Ruslan for sedation mcg Susan Davis RN RN 14:07:00 Fentanyl I.V. 50 Ruslan Ruslan for sedation mcg Susan Davis RN dairy bar manager Log Time Note 13:32:03 Time tracking: Regular hours (M-F 7:00 - 5:00) 13:32:06 Plan of Care:Hemodynamics will remain stable., Cardiac rhythm will remain stable., Comfort level will be maintained., Respiratory function will remain adequate., Patient/ family verbilizes understanding of procedure., Procedure tolerated without complication., Recovers from procedure without complications.. 13:32:11 Uyen Counts RT(R) sent for patient. Start room use. 13:32:43 Signed procedure consent form obtained from patient. 13:32:55 H&P Date Dictated: 11/03/2017 Within 30 days and on chart., H&P Addendum completed by physician on day of procedure. (MUST COMPLETE FOR ALL OUTPATIENTS). 13:34:29 Procedure type changed to Cath procedure, Diagnostic procedure, LHC, LHC w/Coronaries, PCI procedure, Coronary Stent, Coronary Stent Initial, PTCA, PTCA Additional 13:34:35 Patient Height : 5.6 inches 13:34:39 Patient Weight : 236 lbs 13:35:12 Lab Result : BUN 14 mg/dl 13:35:12 Lab Result : Hemoglobin 14.6 g/dl 13:35:12 Lab Result : Creatinine 1.2 mg/dl 13:35:28 Patient allergic to Other allergySHELLFISH DERIVED 13:39:42 Patient received from Pre/Post Procedure Room to CCL 1 Alert and oriented. Tansferred to table in Supine position. 13:39:43 Warm blankets applied, and adi hugger turned on for patient comfort. 13:39:44 Correct patient and procedure confirmed by team. 13:39:45 ECG and BP/O2 sat monitors applied to patient. 13:47:45 Vital chart was started 13:47:47 Rhythm: sinus rhythm 13:47:49 Full Disclosure recording started 13:47:51 Pre-procedure instructions explained to patient. 13:47:53 Pre-op teaching completed and patient verbalized understanding. 13:47:56 Family in waiting room. 13:49:16 Patient NPO since Midnight. 13:50:04 Is the patient allergic to Iodine/contrast media? No. 13:50:05 Is patient on blood thinner?Yes 13:50:07 ACC The patient was administered the following blood thiners within the last 24 hours: ACCPlavix 13:50:09 Patient diabetic? No. 13:50:12 Previous problem with sedation/anesthesia? No ? 13:50:13 Snore? Yes 13:50:13 Sleep apnea? Yes 13:50:15 Deviated septum? No 13:50:16 Opens mouth fully? Yes 13:50:16 Sticks out tongue? Yes 13:50:18 Airway obstruction? No ? 13:50:19 Dentures? No ? 13:50:21 0.9% NaCl 100 ml/hr I.V. was administered by Ruslan Davis RN; Per physician; 13:50:22 Pre procedure: right dorsailis pedis pulse 2+ Normal; easily identifiable; not easily obliterated 13:50:24 Patient pain scale 0/10 ?. 13:50:28 IV patent on arrival in left hand with 0.9% NaCl at [facility]. 13:50:30 Oxygen 2 l/min etCO2 Nasal cannula was administered by Ruslan Lorigan RN; Per physician; 13:50:30 Lab results completed and on chart. 13:50:32 Right groin area was prepped with chlora-prep and draped in sterile fashion 13:50:35 Final Timeout: patient, procedure, and site verified with staff and physician. All members of the team are in agreement. 13:50:40 Heparin Flush Bag (1000units/500ml NS) 2 bags added to field was administered by Ruslan Davis RN; used for procedure; 13:50:46 Right groin site verified by team. 13:50:49 Physical assessment completed. ASA score P 2 - A patient with mild systemic disease as per Pratik Aparicio MD. 13:50:51 Sedation plan: IV Moderate Sedation Medication:Versed, Fentanyl 13:50:52 Lidocaine 2% 20ml vial added to field was administered by Ruslan Davis RN; for local anesthetic; 13:51:51 Zero performed for pressure channel P1 13:52:28 Use device set Femoral Dx 13:52:29 ACIST Syringe (57544) opened to sterile field. 13:52:30 Bag Decanter (2002S) opened to sterile field. 13:52:30 Medline Cath Pack ([id number]) opened to sterile field. 13:52:31 DIAGNOSTIC WIRE .035 260cm J wire (488165) opened to sterile field. 13:52:33 ACIST Hand Control (28427) opened to sterile field. 13:52:33 ACIST Manifold (98613) opened to sterile field. 13:52:34 DIAGNOSTIC Multipack 5Fr catheter set (VR5515) opened to sterile field. 13:52:34 Tegaderm 4 x 4 (1626W) opened to sterile field. 13:52:35 PERCUTANEOUS ENTRY 19GA needle opened to sterile field. 13:52:36 SHEATH Prelude 5Fr 0.035 (GDH-9Z-59-035) opened to sterile field. 13:52:39 Procedure started. 13:52:41 Local anesthetic to right femoral artery with Lidocaine 2% by Pratik Aparicio MD.INITIAL ACCESS ONLY 13:52:49 A 5 Fr sheath was inserted into the Right Femoral artery 13:53:17 Versed 2 mg I.V. was administered by Ruslan Davis RN; for sedation; 13:53:25 Fentanyl 100 mcg I.V. was administered by Ruslan Davis RN; for sedation; 13:53:31 A MULTIPACK Pigtail 5 Fr catheter was advanced over the wire and used for LV Angiography. 13:53:41 Solumedrol 125 mg I.V. was administered by Ruslan Davis RN; Per physician; 13:53:52 LV gram done using WALTON 13:53:56 EF : 55 % 13:53:58 Injector settings: Ml/sec: 10, Volume: 20, 13:54:00 Catheter removed. 13:54:10 A MULTIPACK JL 4.0 5Fr catheter was advanced over the wire and used for Left Coronary Angiography. 13:54:59 Use device set TAU PCI 13:55:05 INFLATOR Merit BasixCompak (AC7091) opened to sterile field. 13:55:08 CHOICE PT Extra Support 182cm wire ([id number]) opened to sterile field. 13:55:10 SHEATH Prelude 6Fr 0.035 (VPX-2S-78-035) opened to sterile field. 13:55:30 Catheter removed. 13:55:35 A MULTIPACK 3DRC 5Fr catheter was advanced over the wire and used for Right Coronary Angiography. 13:56:19 Catheter removed. 13:56:28 GUIDE 6FR XBLAD 3.5 catheter ([id number]) opened to sterile field. 13:57:28 Sheath upsized to a 6 Fr Short. 13:58:43 6 Fr XBLAD 3.5 guide catheter was inserted over the wire 13:59:22 Heparin Bolus 4000 units I.V. was administered by Ruslan Davis RN; for anticoagulation; 13:59:32 Fentanyl 50 mcg I.V. was administered by Ruslan Davis RN; for sedation; 14:01:07 CHOICE PT ES wire advanced. 14:02:23 Inflate balloon Inflation number: 1 A EUPHORA 2.0 x 12 Balloon ([id number]) was prepped and advanced across the 1st Diag, then inflated to 17 CATRINA for 0:10 (min:sec). 14:02:36 Inflation number: 2 The EUPHORA 2.0 x 12 Balloon ([id number]) was reinflated across the 1st Diag, to 15 CATRINA for 0:07 (min:sec). 14:03:25 Balloon removed over the wire. 14:04:30 Place stent Inflation Number: 3 A PAULINE RX 2.25 x 15 stent ([id number]) was prepped and advanced across the 1st Diag. The stent was deployed at 11 CATRINA for 0:07 (min:sec). 14:04:37 Inflation number: 5 The stent balloon was then re-inflated across the 1st Diag to 15 CATRINA for 0:05 (min:sec). 14:05:08 Wire redirected to down LAD. 14:05:22 Inflation number: 1 The stent balloon was then re-inflated across the Mid LAD to 21 CATRINA for 0:05 (min:sec). 14:05:35 Stent catheter was removed intact over wire. 14:05:36 Wire removed. 14:05:37 Guide catheter removed. 14:05:44 Sheath removed intact; hemostasis achieved with Exoseal to the Right Femoral artery. 14:05:46 Procedure ended.(Physican Out) 14:05:58 Fluoroscopy time 04.20 minutes. 14:06:02 Flurop Dose total: 933 14:06:02 Fluoroscopy dose: 933 mGy 14:06:06 Contrast amount:Isovue 370 83ml. 14:06:08 Sharps counted by scrub and verified by R.N. 14:06:09 Insertion/operative site no bleeding no hematoma. 14:06:15 Post-op/insertion site Right Femoral artery dressed using a 4 x 4 and Tegaderm. 14:06:18 Post right femoral artery:stable, clean and dry 14:06:19 Post Procedure Pulses reassessed and unchanged 14:06:22 Post-procedure physical assessment completed. ASA score P 2 - A patient with mild systemic disease as per Pratik Aparicio MD. 14:06:24 Post procedure rhythm: unchanged. 14:06:27 Estimated blood loss: 10 ml 14:06:28 Post procedure instruction explained to patient.Patient verbalizes understanding. 14:06:29 Patient needs reinforcement of post procedure teaching. 14:07:00 Fentanyl 50 mcg I.V. was administered by Ruslan Davis RN; for sedation; 14:07:07 Procedure Complication : No complications 14:08:52 EXOSEAL 6Fr (EX600) opened to sterile field. 14:09:41 Procedure and supply charges have been captured, reviewed, submitted and are correct. 14:10:57 Vital chart was stopped 14:10:58 See physician's report for complete and final results. 14:11:26 Report given to Pre/Post Procedure Room. 14:11:29 Patient transfered to Pre/Post Procedure Room with Stretcher. 14:11:37 Procedure ended. 14:11:37 Full Disclosure recording stopped 14:11:41 End room use (Document Last) Intervention Summary Intervention Notes Time ActionType Lesion and Equipment Used Action# Pressure Duration Attributes 14:02:23 Inflate 1st Diag EUPHORA 2.0 x 1 17 00:10 balloon 12 Balloon ([id number]) 14:02:36 Reinflate 1st Diag EUPHORA 2.0 x 2 15 00:07 balloon 12 Balloon ([id number]) 14:04:30 Place stent 1st Diag PAULINE RX 2.25 x 3 11 00:07 15 stent ([id number]) 14:04:37 Reinflate 1st Diag PAULINE RX 2.25 x 5 15 00:05 stent 15 stent balloon ([id number]) 14:05:22 Reinflate Mid LAD PAULINE RX 2.25 x 1 21 00:06 stent 15 stent balloon ([id number]) Device Usage Item Name Manufacture Quantity Catalog Number Hospital Part Current Minimal Lot# / Charge Number Stock Stock Serial# Code ACIST Syringe Acist 1 41917 269538 195635 [id number] 20 (65241) [employer] Inc Bag Decanter Microtek 1 2001S 758508 58425 935842 5 (2001S) Medical Inc. Medline Cath Cardinal 1 [id number] 279886 31607 706169 5 Pack Health ([id number]) DIAGNOSTIC WIRE [facility] [place] 1 283025 769842 167728 408316 30 .035 260cm J wire (315748) ACIST Hand Acist 1 26556 278100 872631 199593 5 Control (75368) [employer] Systems Inc ACIST Manifold Acist 1 28140 343348 960189 497228 5 (46758) [employer] Systems Inc DIAGNOSTIC Cardinal 1 QH8640 904814 44187 101944 30 Multipack 5Fr [place] catheter set (BP3375) Tegaderm 4 x 4 3M 1 1626W 296396 183601 142872 5 (1626W) PERCUTANEOUS Cook Medical 1 L16227 078414 218247 5 ENTRY 19GA needle SHEATH Prelude Merit 1 VFW-9P-05-035 363512 774483 558338 5 5Fr 0.035 Medical (WZE-0H-33-035) MULTIPACK Cardinal 1 710705 5 Pigtail 5 Fr Health catheter MULTIPACK JL Cardinal 1 426349 5 4.0 5Fr Health catheter INFLATOR Merit Merit 1 [id number] 421728 332383 914133 15 [employer] Medical ([id number]) CHOICE PT Extra [place] 1 [id number] 009180 703115 912628 5 Support 182cm Scientific wire ([id number]) SHEATH Prelude Merit 1 RTN-0S-53-35 941163 3753171 400941 5 6Fr 0.035 Medical (UQS-2W-23-035) MULTIPACK 3DRC Cardinal 1 811735 5 5Fr catheter Health GUIDE 6FR XBLAD Cardinal 1 [id number] 280492 677302 711366 10 3.5 catheter Health ([id number]) EUPHORA 2.0 x Medtronic 1 [id number] 481824 778050 789727 5 [id number] 12 Balloon ([id number]) PAULINE RX 2.25 x Medtronic 1 [id number] 500943 3147643 174167 5 [id number] 15 stent ([id number]) EXOSEAL 6Fr Cardinal 1 EX600 289736 419115 611426 10 (EX600) Health Signature Audit [place] Stage Time Signature Unsigned Intra-Procedure 11/04/2017 Uyen 2:11:52 PM Counts RT(R) Signatures Monitor : Uyen Signature : Counts RT Date : Time : [facility] [address] [place] [address]
--- NOTE | ~2017-11-04 | OP ---
PATIENT NAME: NICOL OROURKE MEDICAL RECORD: [id number] :61 LOCATION:D.CAT ADMISSION DATE: SURGEON: YEHUDA LEES MD DATE OF OPERATION: 11/04/2017 PROCEDURES: 1. PTCA stent LAD diagonal. 2. PTCA, LAD. 3. Left heart catheterization. 4. Selective coronary angiography. 5. Left ventriculogram. INDICATION: Chest pain compatible with angina. PROCEDURE IN DETAIL: After informed consent was obtained and after a detailed description of risks, benefits as well as alternative therapies, the patient elected to proceed with angiogram and angioplasty. The right femoral area was prepped and draped in normal sterile fashion. Right femoral artery was cannulated via modified Seldinger technique with placement of 6-Dominican sheath. All catheters exchanged through this sheath. FINDINGS: The left ventriculogram was performed in standard 30-degree WALTON view, reveals good cardiac wall motion throughout all segments. Overall ejection fraction estimated 60%. SELECTIVE CORONARY ANGIOGRAPHY: 1. Left main is with no significant angiographic disease. 2. Left anterior descending has previously placed stent in the LAD and the diagonal. The diagonal was 95% in-stent restenosed. 3. Left circumflex has mild irregularities, but no flow-limiting stenosis. 4. Right coronary has mild irregularities, but no flow-limiting stenosis. PTCA STENT OF THE LAD DIAGONAL: The stent used was a 2.25 x 15 mm [place]. This caused plaque shift into the LAD itself. This was ballooned with the stent balloon. Result was 0% residual stenosis. OVERALL IMPRESSION: Successful PTCA stent of the LAD diagonal going from 95% initial stenosis that was in-stent restenosis to 0% residual stenosis. TRANSINT:[id number] Voice Confirmation ID: [id number] DOCUMENT ID: [id number] YEHUDA LEES MD at 1711 CC: [id number] DICTATION DATE: 11/04/17 1413 PLANT BIOLOGY PROFESSOR: 11/04/17 1600 DEP CLI 11/04/17 [place] [id number] [place] [id number]
[~2017-11-04 10:24] MED LIST changes: +LIPITOR20 MG PO
[2017-11-04 11:14] LABS: BASOPHILS 0.4 % (0-2); EOSINOPHILS 4.4 % (0-7); HEMATOCRIT 41.6 % (42.0-54.0); HEMOGLOBIN 14.6 g/dL (13.5-17.5); IMMATURE GRANULOCYTES 0.4 % (0-5); LYMPHOCYTES 27.9 % (15-50); MCH 32.4 pg (26.0-34.0); MCHC 35.1 g/dL (31.0-37.0); MCV 92.4 fL (80.0-100.0); MEAN PLATELET VOLUME 9.6 fL (7.4-10.4); MONOCYTES 7.2 % (2-11); NEUTROPHILS 59.7 % (40-80); PLATELET COUNT 101 10x3/uL (130-400); RDW 13.1 % (11.5-14.5); WBC 4.7 10x3/uL (4.8-10.8)
[2017-11-04 11:19] VITALS: BP 110/75; Ht 177.8 cm; Wt 107.3 kg
[2017-11-04 11:40] LABS: ANION GAP 12.3 mmol/L (8-16); CALCIUM 9.6 mg/dL (8.5-10.1); CARBON DIOXIDE 27.9 mmol/L (21.0-32.0); CREATININE - SERUM 1.2 mg/dL (0.6-1.3); POTASSIUM - SERUM 4.2 mmol/L (3.5-5.1)
== END | disposition home or self-care (01) ==
LOC: D.CATH 10:24
PROVIDERS: Internal Medicine Interventional Cardiology
DX: I25.119 Atherosclerotic heart disease of native coronary artery with unspecified angina pectoris (principal); Z01.812 Encounter for preprocedural laboratory examination

== ENCOUNTER 2017-11-05 17:42 | Observation (INO) | payer OTHER ==
[~2017-11-05] VITALS: Ht 175.3 cm; Wt 107.3 kg
[~2017-11-05 17:42] MED LIST changes: -LIPITOR20 MG PO
[2017-11-05 18:32] LABS: BASOPHILS 0.1 % (0-2); EOSINOPHILS 0 % (0-7); HEMATOCRIT 40.2 % (42.0-54.0); HEMOGLOBIN 14.2 g/dL (13.5-17.5); IMMATURE GRANULOCYTES 0.3 % (0-5); LYMPHOCYTES 11.1 % (15-50); MCH 32.5 pg (26.0-34.0); MCHC 35.3 g/dL (31.0-37.0); MEAN PLATELET VOLUME 9.7 fL (7.4-10.4); MONOCYTES 7.8 % (2-11); NEUTROPHILS 80.7 % (40-80); PLATELET COUNT 134 10x3/uL (130-400); RBC 4.37 10x6/uL (4.20-6.10); RDW 13.2 % (11.5-14.5); WBC 13.1 10x3/uL (4.8-10.8)
[2017-11-05 18:49] LABS: ALKALINE PHOSPHATASE 75 U/L (46-116); ALT (SGPT) 86 U/L (10-68); BILIRUBIN - TOTAL 0.85 mg/dL (0.2-1.3); CALCIUM 9.5 mg/dL (8.5-10.1); CARBON DIOXIDE 25.4 mmol/L (21.0-32.0); CHLORIDE - SERUM 99 mmol/L (98-107); CREATININE - SERUM 1.4 mg/dL (0.6-1.3); PROTEIN - SERUM 7.9 g/dL (6.4-8.2); SODIUM 135 mmol/L (136-145); eGFR NON AFRICAN AMERICAN 56 mL/min (90-120)
[2017-11-05 18:50] LABS: CALC OSMOLALITY 287 mosm/kg (275-300); GLUCOSE 336 mg/dL (74-106); UREA NITROGEN 26 mg/dL (7-18)
[2017-11-05 18:59] LABS: CHOL - HDL RATIO 9.8 ratio (2.3-4.9); CHOLESTEROL, TOTAL 275 mg/dL (0-200); CKMB 0.4 U/L (0.0-3.6); CREATINE KINASE 152 UL (21-232); HDL CHOLESTEROL 28 mg/dL (32-96); LDL CHOLESTEROL 205 mg/dL (0-100); LDL-HDL RATIO 7.3 ratio (1.5-3.5); TRIGLYCERIDE 212 mg/dL (30-200)
[2017-11-05 19:02] LABS: TROPONIN-I < 0.017 ng/mL (0.000-0.060)
[2017-11-05 23:52] VITALS: BP 128/74; Ht 175.3 cm; Wt 107.3 kg
[2017-11-05 23:56] LABS: CKMB 0.3 U/L (0.0-3.6); CREATINE KINASE 139 UL (21-232)
[2017-11-06] LABS: TROPONIN-I < 0.017 ng/mL (0.000-0.060)
[2017-11-06 04:00] VITALS: BP 108/63
[2017-11-06 07:44] LABS: CKMB 0.2 U/L (0.0-3.6); CREATINE KINASE 93 UL (21-232)
[2017-11-06 07:45] LABS: TROPONIN-I < 0.017 ng/mL (0.000-0.060)
[2017-11-06 09:09] VITALS: BP 108/60
[2017-11-06] MEDS ORDERED: LIPITOR20 MG PO (09:13)
[2017-11-06 10:11] LABS: CKMB 0.2 U/L (0.0-3.6); CREATINE KINASE 91 UL (21-232)
[2017-11-06 10:12] LABS: TROPONIN-I < 0.017 ng/mL (0.000-0.060)
== END 2017-11-06 11:48 | disposition home or self-care (01) ==
LOC: D.ER 17:42 → D.EDHOLD 20:55 → OBSVTIME 20:55 → D.M2 21:50
PROVIDERS: Family Medicine
DX: R07.9 Chest pain, unspecified (principal); I25.10 Atherosclerotic heart disease of native coronary artery without angina pectoris; Z95.5 Presence of coronary angioplasty implant and graft; I10 Essential (primary) hypertension

== ENCOUNTER → 2017-11-29 15:51 | Outpatient (CLI) | payer OTHER ==
[2017-11-05 23:52] VITALS: BMI 34.9
[~2017-11-29 15:51] MED LIST changes: +LIPITOR20 MG PO
[2017-11-29 16:47] LABS: PLT FUNCT.(P2Y12) PLAVIX 183 PRU (194-418)
== END | disposition home or self-care (01) ==
LOC: D.LAB 15:51
PROVIDERS: Thoracic Surgery (Cardiothoracic Vascular Surgery)
DX: D69.6 Thrombocytopenia, unspecified (principal)